=== PATIENT | female | born 2000 | race Caucasian/White ===

== ENCOUNTER → 2018-08-04 | Outpatient (CLI) | payer OTHER | LOC: MC.RAD 08:43 | DX: N63.13 Unspecified lump in the right breast, lower outer quadrant (principal) ==

== ENCOUNTER → 2018-08-11 | Outpatient (CLI) | payer OTHER | LOC: MC.RAD 13:46 | DX: N63.13 Unspecified lump in the right breast, lower outer quadrant (principal); Z98.82 Breast implant status ==